=== PATIENT | male | born 2005 | race Caucasian/White ===

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

== ENCOUNTER 2023-03-30 08:05 | Outpatient (CLI) | payer OTHER, SELFPAY | END 2023-03-30 08:06 | disposition home or self-care (01) | LOC: INJ CL 08:06 | PROVIDERS: Visit Provider Family Medicine | DX: M54.16 Radiculopathy, lumbar region (principal); M51.36 Other intervertebral disc degeneration, lumbar region | CPT/HCPCS: 64483; J1100; Q9966 ==